=== PATIENT | female | born 1960 | race Caucasian/White ===

== ENCOUNTER 2023-05-15 09:10 | Outpatient (OUT) | payer BC, OTHER, SELFPAY ==
--- NOTE | 2023-05-15 | XR_ITS ---
[facility] [id number] Patient Name: MARIBELL SALGUERO MRN: [id number] date: 1960 Sex: F Assigned Patient Location: [facility] Current Patient Location: Accession/Order Number: [id number] Exam Date: 05/15/2023 09:23 Report Date: 05/16/2023 07:32 At the request of: DELLA MARK Procedure: XR ankle RT min 3V PROCEDURE: XR ankle RT min 3V HISTORY: RIGHT ANKLE PAIN ; mass on right ankle for 6 months; no known injury COMPARISON: None. FINDINGS: BONES:Degenerative osteophytes along margins of the tibial plafond. Small corticated ossification distal to the medial malleolus favoring sequela of remote injury. Prominent degenerative enthesopathic spurring of the calcaneus. No acute fracture, dislocation, bone lesion. SOFT TISSUES:Questionable mild soft tissue swelling anterior to the ankle joint. EFFUSION:None visible. OTHER: Negative. XR/XR ankle RT min 3V IMPRESSION: 1. Mild degenerative changes. No acute bone abnormality or specific findings to account for patient's symptoms. Electronically authenticated by: CHARY TREVINO Date: 05/16/2023 07:32
== END 2023-05-15 09:11 | disposition home or self-care (01) ==
PROVIDERS: Visit Provider Podiatrist Foot & Ankle Surgery
DX: M25.571 Pain in right ankle and joints of right foot (principal)
CPT/HCPCS: 73610